=== PATIENT | male | born 1995 | race Caucasian/White ===

== ENCOUNTER → 2017-01-27 | Outpatient (CLI) | payer BC ==
[2013-06-07 08:20] VITALS: BP 122/61
--- NOTE | 2017-01-27 17:26 | MRI ---
STUDY: MRI OF THE BRAIN WITHOUT AND WITH GADOLINIUM History: Headaches and muscle soreness. Comparison: None. Technique: Multiplanar multi-sequence MRI of the brain was obtained utilizing standard departmental protocol. Sagittal and axial T1, axial T2, FLAIR, diffusion (DWI/ADC) images through the brain were performed. 15 cc of Omniscan was administered without reported complication following acquisition of informed w ritten consent. Post gadolinium axial and coronal whole brain images were performed. Findings: Pre gadolinium brain: The sulci, cisterns, and ventricles are age appropriate. There is no evidence of acute territorial infarction, hemorrhage, mass, mass effect or midline shift. There are no abnorm al intra-axial or extra-axial fluid collections. The major intracranial vascular flow voids are inta ct. Post gadolinium brain: Following the uneventful administration of intravenous gadolinium, there is n o evidence of abnormal brain parenchymal or leptomeningeal enhancement. IMPRESSION: 1. No evidence of acute intracranial abnormality. Reported By:
== END ==
LOC: RAD 14:18
PROVIDERS: ATTEND Internal Medicine
DX: R51 Headache (principal)
CPT/HCPCS: 70553